=== PATIENT | female | born 1960 | race Caucasian/White ===

== ENCOUNTER 2016-06-16 23:20 | Emergency (ER) | payer BC, OTHER ==
[2016-06-16] MEDS ORDERED: OPTIRAY 350 100 ML VIAL HMH IV ONE (23:21)
[2016-06-17] MEDS ORDERED: LIDOCAINE 2% VISC 15 ML UDC ONE (00:55)
[2016-06-17] MEDS ORDERED: ALU/MAG/SIM 30 ML UDC ONE (00:55)
[2016-06-17] MEDS ORDERED: ASPIRIN 81 MG CHEW TAB ONE (00:55)
[2016-06-17] MEDS ORDERED: SODIUM CHLORIDE 0.9% 2,000 ML ONE (00:55)
[2016-06-17] MEDS ORDERED: ONDANSETRON 4 MG VIAL ONE (02:33)
[2016-06-17] MEDS ORDERED: DILAUDID 1 MG/ML AMP ONE (02:33)
== END 2016-06-17 03:15 | disposition home or self-care (01) ==
LOC: ER 23:20
DX: R07.2 Precordial pain (principal); R07.89 Other chest pain
CPT/HCPCS: 36415; 71010; 71260; 80053; 82550; 82553; 83735; 84484; 85025; 85379; 85610; 85730; 93005; 96361; 96374; 96375